=== PATIENT | female | born 1990 | race African-American/Black ===

== ENCOUNTER 2018-01-06 12:45 | Emergency (ER) | payer SELFPAY ==
[2018-01-06 14:58] LABS: Bilirubin Negative (Negative); Blood, Urine Large (Negative); Clarity CLEAR (Clear); Glucose, Urine (Dipstick) Negative (Negative); Leukocyte Negative (Negative); Nitrite Negative (Negative); Protein, Urine (Dipstick) Negative (Neg-Trace); Specific Gravity, Urine 1.027 (1.002-1.036); pH, Urine 5.5 (5.0-9.0)
[2018-01-06 15:00] LABS: Bacteria/HPF None Seen HPF (None Seen); Hyaline Casts/LPF 4-6 HYALINE CAST LPF (0-3 Hyaline); WBC/HPF 0-3 HPF (0-3)
[2018-01-06 15:01] LABS: Pregnancy Test - Urine (BHCG) Negative (Negative); Pregu Control Background? CLEAR/WHITE (CLR/WHITE); Pregu Control Bar Appear? YES (CONTROL BAR); Specific Gravity 1.027 (1.002-1.036)
--- NOTE | 2018-01-06 15:08 | RAD ---
CHEST 2 VIEWS: Date: 01/06/18 HISTORY: Cough and congestion. FINDINGS: Heart size and mediastinum are within normal limits. Lungs are clear of infiltrates. No significant b nahun findings. IMPRESSION: 1. No active intrathoracic disease. 2. Very minimal scoliosis. POS: [facility]
[2018-01-06] MEDS ORDERED: Azithromycin 250 MG TAB ONE (15:13)
[2018-01-06] MEDS ORDERED: cefTRIAXone\\ROCEPHIN 250 MG VIAL ONE (15:13)
[2018-01-06] MEDS ORDERED: Lidocaine 1% PF 5 ML VIAL ONE (15:14)
[2018-01-07 23:16] LABS: Chlamydia by PCR Not Detected (NotDetected); GC by PCR Not Detected (NotDetected)
== END 2018-01-06 15:46 | disposition home or self-care (01) ==
LOC: ERS 12:45
DX: J30.9 Allergic rhinitis, unspecified (principal); Z20.2 Contact with and (suspected) exposure to infections with a predominantly sexual mode of transmission; J45.909 Unspecified asthma, uncomplicated; F41.9 Anxiety disorder, unspecified
CPT/HCPCS: 71046; 81003; 81015; 81025; 87480; 87491; 87510; 87591; 87660; 96372; J0696; J2001

== ENCOUNTER 2018-11-25 14:23 | Inpatient (IN) | payer OTHER ==
[2018-11-25 15:04] VITALS: BMI 26.0
[2018-11-25] MEDS ORDERED: hydrALAZINE 20 MG/ML VIAL SLOW IVP PRN ×3 (15:26→22:31)
[2018-11-25] MEDS ORDERED: Ibuprofen 800 MG TAB PO PRN (15:26)
[2018-11-25] MEDS ORDERED: Butorphanol Tartrate 1 MG/ML VIAL SLOW IVP PRN (15:26)
[2018-11-25] MEDS ORDERED: Promethazine HCl 25 MG/ML VIAL IM PRN ×2 (15:26→16:54)
[2018-11-25] MEDS ORDERED: Lidocaine 1% (PF) 30 ML VIAL SC PRN (15:26)
[2018-11-25] MEDS ORDERED: HYDROcodone/Acetaminophen 5/325 mg Tablet PO PRN ×4 (15:26→22:31)
[2018-11-25] MEDS ORDERED: Ondansetron PF 4 MG/2 ML Vial IVP PRN ×3 (15:26→22:31)
--- NOTE | 2018-11-25 15:26 | PDOC.EVN ---
Event Note - Event Note Event Note: ADMIT NOTE: Patient seen at 1500 in triage Admitted by me to Dr Lemus for active labor NICU aware of EGA of 36 weeks and IUGR status (2%) Full H&P dictated.
[2018-11-25] MEDS: Lactated Ringer's 1,000 ML IV SCH ×2 (15:31→17:17)
[2018-11-25] MEDS ORDERED: Betamet Acet/Betamet Na Ph 30 MG/5 ML VIAL ONE (15:42)
[2018-11-25] MEDS ORDERED: Betamet Acet/Betamet Na Ph 30 MG/5 ML VIAL IM SCH (15:45)
--- NOTE | 2018-11-25 15:59 | HP ---
TIME: 1520 hours. TIME OF EVALUATION: 1500 hours until 1515 hours. LOCATION: Labor and Delivery, triage A. This is a patient of Dr. Lemus/Ana Maria Sow. CHIEF COMPLAINT: The patient with known IUGR at 2% with vaginal bleeding at about 1420 hours this afternoon. HISTORY OF PRESENT ILLNESS: This is a 28-year-old female, G3, P2, at 36 weeks and 1 day with complaint of vaginal bleeding that "ran down her leg" and felt like her water broke. This was by her report. She was seen by MFM earlier today with an estimated weight of 2200 g, 2nd percentile for growth. She is GBS negative. The bleeding happened after the MFM appointment. Last intercourse was on Thursday evening, about two days ago. She began cramping yesterday, but some contractions increased today. She has good movement. Her OB history significant for prior (SGA) small for gestational age babies x2. REVIEW OF SYSTEMS: Complete review of systems was checked and it is otherwise negative unless specified in the HPI. PAST OB HISTORY: The patient had likely PIH with her last and she had a vaginal delivery x2. Again, she has a history of SGA x2. ALLERGIES: NONE. PAST SURGICAL HISTORY: Bilateral knee ACL and meniscus repairs from basketball injuries. PAST MEDICAL HISTORY: Significant for asthma with last asthma attack (mild) being last week. She has an MDI with her. PHYSICAL EXAMINATION: VITAL SIGNS: Blood pressure is 126/79, pulse is 60 to 70, and she is afebrile. Clinically, she is in no acute distress. Uterus is soft and nontender. She does have some blood in the perineal area and staining on a pad like a moderate period. I performed a cervical examination since there was no evidence of previa on MFM exam. Cervix is 6 cm dilated, 80% effaced, zero station. There is bloody fluid from the vagina, although there is a fore-bag present, I suspect she has a high leak. On monitor, heart tones are in the 140s to 150s with moderate variability and accelerations. It is category 1. Tocodynamometer shows rare contractions, but they are present at about every 10 to 15 minutes or so with an underlying baseline that is irritability. ASSESSMENT: This is a 28-year-old , G3, P2, at 36 weeks and 1 day with known IUGR at 36 weeks, GBS negative, with vaginal bleeding that is most likely labor related, and may be a marginal placental separation based on the amount of bleeding based on her history. PLAN: 1. I have discussed the case with neonatology and they are aware. 2. Steroids will be given because she is less than 36 weeks and 6 days. 3. Pain control. 4. We anticipate delivery. 5. Baby is cephalic. 6. Dr. Lemus report has been given. Job ID: [id number]
[2018-11-25 16:01] LABS: Hemoglobin 12.2 g/dL (12.0-16.0); Mean Corpuscular HGB CONC 34.9 g/dL (32.0-36.0); Mean Corpuscular Hemoglobin 30.3 pg (27.0-31.0); Mean Platelet Volume 8.8 fL (7.4-10.4); Platelet Count 217 thou/uL (130-400); RBC Distribution Width 11.7 % (11.5-14.5); Red Blood Cell (RBC) Count 4.03 mill/uL (4.20-5.40); White Blood Cell (WBC) Count 13.3 thou/uL (4.8-10.8)
[2018-11-25] MEDS ORDERED: Fentanyl 4 mcg/Bup 0.1% Cadd 100 ML ONE (16:12)
[2018-11-25 16:39] LABS: Syphilis Antibody Nonreactive (Nonreactive); Syphilis Antibody Index 0.03 S/CO (<1.00 Non-Reactive)
[2018-11-25 16:40] LABS: HIV (1/2) Antibody/Antigen Non-Reactive (NonReactive)
[2018-11-25] MEDS ORDERED: ePHEDrine/0.9% NaCl/PF SYRINGE 50 mg/10 ml SLOW IVP PRN (16:54)
[2018-11-25] MEDS ORDERED: Naloxone HCl 0.4 mg/ml Vial IVP PRN ×2 (16:54)
[2018-11-25] MEDS ORDERED: diphenhydrAMINE 50 MG/ML VIAL IVP PRN (16:54)
[2018-11-25] MEDS ORDERED: Lactated Ringer's 500 ML IV PRN (16:54)
[2018-11-25] MEDS ORDERED: Acetaminophen 325 MG TAB PO PRN (16:54)
[2018-11-25] MEDS ORDERED: Communication Order-Pharmacy FS SCH (17:00)
[2018-11-25] MEDS ORDERED: Fentanyl 4 mcg/Bupivacaine 0.1% Cassette 100 ML EPIDURAL SCH (17:00)
[2018-11-25] MEDS ORDERED: NS w/ Oxytocin 10 units 500 ML ONE (17:26)
--- NOTE | 2018-11-25 17:28 | PDOC.LDPN ---
Labor & Delivery Progress Note - Subjective Subjective: comfortable - Objective Vital signs reviewed and normal: yes General: NAD Uterine fundus: non tender Dilation: 7 Effacement: 100% Station: -1 FHT: category 1 Wilson contractions every: 5min AROM: clear fluid (forebag arom) Plan: pitocin for augmentation
--- NOTE | 2018-11-25 18:49 | PDOC.OPDEL ---
OB Operative/Delivery Note Delivery Dr/Surgeon: Allan Assist: n/a Pre-Delivery Diagnosis: active labor Procedure/Post Delivery Dx: spontaneous vaginal delivery Weeks gestation: 36 Anesthesia: epidural - Findings A Sex: female - 1 min: 8 - 5 min: 9 - Additional Findings/Plan Placenta delivered: spontaneous Repaired Obstetrical Laceration: none Estimated blood loss: 50cc Post delivery plan: routine recovery
[2018-11-25 18:56] LABS: HBSAg Index 0.26 S/CO (0-0.99); Hep B Surf Ag NonReactive S/CO (NonReactive)
[2018-11-25] MEDS: NS / Oxytocin 40 units/1000ml 1,000 ML IV PRN ×2 (19:08→21:56)
[2018-11-25] MEDS ORDERED: NS / Oxytocin 40 units/1000ml 1,000 ML IV SCH (22:31)
[2018-11-25] MEDS ORDERED: Milk Of Magnesia 30 ML UDCUP PO PRN (22:31)
[2018-11-25] MEDS ORDERED: diphenhydrAMINE 25 MG CAP PO PRN (22:31)
[2018-11-25] MEDS ORDERED: Lanolin Ointment 7 GM TUBE TOP PRN (22:31)
[2018-11-25] MEDS ORDERED: Benzocaine-Menthol 82.5 ML CAN TOP PRN (22:31)
[2018-11-25] MEDS ORDERED: Preparation H Ointment 28 GM TUBE PR PRN (22:31)
[2018-11-25] MEDS ORDERED: Bisacodyl 10 MG SUPP PR PRN (22:31)
[2018-11-26] MEDS: Ibuprofen 800 MG TAB PO SCH ×4 (01:04→21:21)
[2018-11-26] MEDS: Ferrous Sulfate 325 MG TAB PO SCH ×2 (07:47→18:41)
[2018-11-26] MEDS: Docusate Calcium (SURFAK) 240 MG CAP PO SCH ×2 (09:00→21:21)
[2018-11-26] MEDS ORDERED: Adacel (T-DAP) 0.5 ML SYRINGE IM ONE (09:00)
[2018-11-26] MEDS: Prenatal Vitamin 1 TAB PO SCH (09:00)
--- NOTE | 2018-11-26 20:44 | PDOC.PP ---
Post Progress Note Post Day #: 1 Subjective: Patient is doing well. she is not . She is doing well, up to urinate and passing gas. Her bleeding is good, less than a period. PO intake tolerated: yes Flatus: yes Ambulation: yes Vital Signs (12 hours) Temp Pulse Resp BP Pulse Ox 11/26/18 19:29 98.6 F 82 18 127/69 98 Weight Weight 147 lb - Physical Examination General: NAD Respiratory: non-labored breathing Abdominal: lochia (minimal) Extremities: negative homans (B) Skin: no rash Neurological: no gross focal deficits Psychiatric: normal affect Result Diagrams: 11/25/18 15:37 Additional Labs: Post Labs Blood Type AB POSITIVE 11/25/18 17:09 Hep Bs Antigen NonReactive S/CO (NonReactive) 11/25/18 15:37 (1) (spontaneous vaginal delivery) Code(s): O80 - ENCOUNTER FOR FULL-TERM UNCOMPLICATED DELIVERY Status: Acute - Assessment/Plan A: s/p complicated by in 3rd trimester, IUGR, and CMV IgG, IgM antibodies P: routine care Medical Observer Dr. Jang notified of CMV+ mother Discharge home tomorrow if clinically appropriate.
[2018-11-27] MEDS: Ibuprofen 800 MG TAB PO SCH (05:44)
[2018-11-27] MEDS: Ferrous Sulfate 325 MG TAB PO SCH (08:36)
[2018-11-27] MEDS: Docusate Calcium (SURFAK) 240 MG CAP PO SCH (08:37)
[2018-11-27] MEDS: Prenatal Vitamin 1 TAB PO SCH (08:37)
[2018-11-27 08:58] VITALS: BP 118/79; TEMP 98.2
--- NOTE | 2018-11-27 17:39 | DIS ---
DATE OF ADMISSION: 11/25/2018 DATE OF DISCHARGE: 11/27/2018 ADMITTING DIAGNOSES: 1. Intrauterine at 36 weeks. 2. Intrauterine growth restriction was at 2nd percentile. DISCHARGE DIAGNOSES: 1. Intrauterine at 36 weeks. 2. Intrauterine growth restriction was at 2nd percentile. PROCEDURE PERFORMED: spontaneous vaginal delivery. HOSPITAL COURSE: The patient is a 28-year-old female, who presented to Labor and delivery at 36 weeks gestation for induction of labor secondary to severe IUGR at 36 weeks gestation. The patient was experiencing vaginal bleeding at the time of presentation. Her course was uncomplicated and resulted in a spontaneous vaginal delivery. She is now day 2, reports that she is tolerating p.o., voiding on her own, having decreased lochia, and good pain control. VITAL SIGNS: Blood pressure 117/66, temperature 98.4, pulse of 93, respiratory rate 18, saturating 96% on room air. GENERAL: She appears to be in no acute distress. She is alert, oriented, cooperative, pleasant to interact with. HEAD: Normocephalic and atraumatic. LUNGS: Clear to auscultation bilaterally. HEART: Has regular rate and rhythm. ABDOMEN: Firm at the fundus with fundus at the level of the umbilicus. EXTREMITIES: Nontender, nonedematous. The patient is being discharged home with ibuprofen for pain control. She has instructions to follow up with her primary OB in 6 weeks or sooner if she experiences fever, increasing pain, or bleeding. Job ID: [id number]
== END 2018-11-27 10:02 | disposition home or self-care (01) | DRG 805 ==
LOC: L&D/OP 14:23 → L&D 16:30 → 3SE 21:53
PROVIDERS: ADMIT Obstetrics & Gynecology; ATTEND Obstetrics & Gynecology
PROC: 10E0XZZ Delivery of Products of Conception, External Approach (ICD-10-PCS; principal; 2018-11-25)
PROC: 10907ZC Drainage of Amniotic Fluid, Therapeutic from Products of Conception, Via Natural or Artificial Opening (ICD-10-PCS; 2018-11-25)
PROC: 3E033VJ Introduction of Other Hormone into Peripheral Vein, Percutaneous Approach (ICD-10-PCS; 2018-11-25)
DX: O36.5930 Maternal care for other known or suspected poor fetal growth, third trimester, not applicable or unspecified (principal); O60.13X0 Preterm labor second trimester with preterm delivery third trimester, not applicable or unspecified; Z37.0 Single live birth; O99.52 Diseases of the respiratory system complicating childbirth; Z3A.36 36 weeks gestation of pregnancy; J45.909 Unspecified asthma, uncomplicated
CPT/HCPCS: 36415; 51702; 85027; 86780; 86850; 86900; 86901; 87340; 87389; 99285; J0702; J2001; J2590

== ENCOUNTER 2020-10-04 11:35 | Emergency (ER) | payer SELFPAY ==
[2020-10-04] MEDS ORDERED: Acetaminophen 500 MG TAB ONE (12:20)
[2020-10-04 13:11] LABS: Bilirubin Negative (Negative); Blood, Urine Negative (Negative); Clarity Clear (Clear); Glucose, Urine (Dipstick) Normal (Negative); Ketone, Urine Negative (Negative); Leukocyte Negative Leu/uL (Negative); Nitrite Negative (Negative); Protein, Urine (Dipstick) Negative (Neg-Trace); Specific Gravity, Urine 1.024 (1.002-1.036); Urobilinogen Normal mg/dL (Less than 2)
[2020-10-04 13:22] LABS: Actual Bicarbonate (HCO3v) 23 mEq/L (22-28); Analyzer IN Cardio ER; Calcium, Ionized (venous) 1.13 mmol/L (1.16-1.32); Chloride (VBG) 102 mmol/L (98-106); Hemoglobin (Hb) 13.8 g/dL (11.7-15.5); Potassium (VBG) 5.53 mmol/L (3.70-5.30); Sodium 134.3 mmol/L (133-146); pH (venous) 7.36 (7.32-7.43)
[2020-10-04 13:33] LABS: SARS-CoV-2 NAA Rapid Test Not Detected (NotDetected)
[2020-10-04 14:01] LABS: ALT (SGPT) 10 U/L (8-55); AST (SGOT) 15 U/L (5-34); Albumin 3.8 g/dL (3.5-5.0); Alkaline Phosphatase 70 U/L (40-110); Anion Gap 12 mmol/L (10-20); BUN (Urea Nitrogen) 8 mg/dL (7.0-18.7); Bilirubin, Total 1.2 mg/dL (0.2-1.2); Calc. Creatinine Clearance 0 mL/min (70-130); Calcium 8.6 mg/dL (7.8-10.44); Carbon Dioxide 21 mmol/L (22-29); Chloride 104 mmol/L (98-107); Globulin 3.1 g/dL (2.4-3.5); Glucose 89 mg/dL (70-105); Magnesium 1.4 mg/dL (1.6-2.6); Potassium 3.8 mmol/L (3.5-5.1); Protein, Total 6.9 g/dL (6.0-8.3); Sodium 133 mmol/L (136-145)
[2020-10-04 17:15] LABS: #Eosinphils 0.1 thou/uL (0.0-0.7); #Monocytes 0.7 thou/uL (0.11-0.59); %Basophils 0.4 % (0.0-1.0); %Eosinophils 1.3 % (0.0-10.0); %Neutrophils 81.3 % (42.0-75.0); Mean Corpuscular HGB CONC 32.4 g/dL (32.0-36.0); Mean Corpuscular Volume 86.5 fL (78.0-98.0); Mean Platelet Volume 7.6 fL (7.4-10.4); Platelet Count 231 thou/uL (130-400); RBC Distribution Width 10.9 % (11.5-14.5); Red Blood Cell (RBC) Count 4.29 mill/uL (4.20-5.40); White Blood Cell (WBC) Count 9.9 thou/uL (4.8-10.8)
[2020-10-04] MEDS ORDERED: metroNIDAZOLE 250 MG TAB ONE (17:33)
[2020-10-04] MEDS ORDERED: Magnesium 2 GM/50 ML BAG (IN WATER) ONE (17:48)
[2020-10-04] MEDS ORDERED: Lidocaine 1% (PF) 30 ML VIAL ONE (18:00)
[2020-10-04] MEDS ORDERED: cefTRIAXone\\ROCEPHIN 500 MG VIAL ONE (18:00)
[2020-10-04] MEDS ORDERED: Azithromycin 250 MG TAB ONE (18:27)
[2020-10-04] MEDS ORDERED: Magnesium Oxide 250 MG TAB PO SCH (18:30)
[2020-10-06 19:53] LABS: Chlamydia by PCR Not Detected (NotDetected); GC by PCR Not Detected (NotDetected)
== END 2020-10-04 18:05 | disposition home or self-care (01) ==
LOC: ERS 11:35
DX: N76.0 Acute vaginitis (principal); E83.42 Hypomagnesemia; M79.10 Myalgia, unspecified site; R50.9 Fever, unspecified; R00.0 Tachycardia, unspecified; Z20.822 Contact with and (suspected) exposure to COVID-19; J45.909 Unspecified asthma, uncomplicated
CPT/HCPCS: 36415; 80053; 81003; 82805; 83605; 83735; 84702; 85025; 87040; 87149; 87480; 87491; 87510; 87591; 87660; 96372; 99283; J0696; J2001; J3475; U0002; U0005